=== PATIENT | female | born 1955 | race Caucasian/White ===

== ENCOUNTER 2025-02-05 01:09 | Emergency (ER) | payer MEDICAID, OTHER ==
[~2025-02-05] VITALS: Ht 157.5 cm; Wt 106.6 kg
[2025-02-05] MEDS ORDERED: METOPROLOL (01:34)
[2025-02-05] MEDS ORDERED: FURO20TA90 (01:34)
[2025-02-05] MEDS ORDERED: DILTIAZEM HCL 25 MG IV ONE (02:14)
[2025-02-05 02:23] LABS: BASOPHILS # (AUTO) 0.1 K/UL (0.0-0.2); BASOPHILS % (AUTO) 1.4 % (0.0-2.0); EOSINOPHILS % (AUTO) 0.3 % (0.0-7.0); HEMATOCRIT 30.6 % (31.2-41.9); HEMOGLOBIN 9.4 g/dL (10.9-14.3); LYMPHOCYTES # (AUTO) 0.9 K/uL (0.8-4.8); LYMPHOCYTES % (AUTO) 9.4 % (20.5-51.5); MEAN CORPUSCULAR HEMOGLOBIN 18.4 uug (24.7-32.8); MEAN CORPUSCULAR HGB CONC 31 g/dL (32.3-35.6); MEAN CORPUSCULAR VOLUME 60.1 fL (75.5-95.3); MONOCYTES # (AUTO) 0.9 K/uL (0.1-1.30); MONOCYTES % (AUTO) 9.9 % (0.0-11.0); NEUTROPHILS # (AUTO) 7.4 K/uL (1.8-8.9); PLATELET COUNT (AUTO) 239 K/uL (179-408); RED CELL DISTRIBUTION WIDTH 18.3 % (12.3-17.7); WHITE BLOOD COUNT (AUTO) 9.3 K/uL (3.8-11.8)
[2025-02-05 02:24] LABS: DIFFERENTIAL COMMENT 1
[2025-02-05 02:34] LABS: CALCIUM 9.2 mg/dL (8.5-10.1); CARBON DIOXIDE 31 mmol/L (21-32); CHLORIDE 102 mmol/L (98-107); CREATININE 0.8 mg/dL (0.6-1.3); GLUCOSE 122 mg/dL (74-106); POTASSIUM 3.9 mmol/L (3.5-5.1); SODIUM SERUM 138 mmol/L (136-145); UREA NITROGEN, BLOOD 12 mg/dL (7-18)
[2025-02-05 02:40] LABS: ALANINE AMINOTRANSFERASE 12 U/L (14-59); ALBUMIN 2.7 g/dL (3.4-5.0); ALKALINE PHOSPHATASE 87 U/L (50-136); ASPARTATE AMINOTRANSFERASE 20 U/L (15-37); BILIRUBIN,TOTAL 2.2 mg/dL (0.2-1.0); LIPASE 25 U/L (16-77); TOTAL PROTEIN, SERUM 7.1 g/dL (6.4-8.2)
[2025-02-05 02:45] LABS: MAGNESIUM 1.9 mg/dL (1.8-2.4)
[2025-02-05 02:47] LABS: THYROID STIMULATING HORMONE 2.095 mIU/mL (0.358-3.740)
[2025-02-05] MEDS: DILTIAZEM HCL 25 MG IV IV ONE ×2 (02:48→03:29)
[2025-02-05 03:23] VITALS: O2SAT 98
[2025-02-05 03:29] VITALS: BP 141/84
[2025-02-05] MEDS ORDERED: ACETAMINOPHEN 500 MG TABLET ONE (03:40)
[2025-02-05] MEDS: ACETAMINOPHEN 500 MG TABLET PO ONE (04:10)
== END 2025-02-05 04:39 | disposition home or self-care (01) ==
LOC: ER 01:13
DX: R10.9 Unspecified abdominal pain (principal); M54.9 Dorsalgia, unspecified; R60.0 Localized edema; D64.9 Anemia, unspecified; I10 Essential (primary) hypertension; I48.91 Unspecified atrial fibrillation; J18.9 Pneumonia, unspecified organism; J96.10 Chronic respiratory failure, unspecified whether with hypoxia or hypercapnia
CPT/HCPCS: 99285; 74176; 96374; 80076; 80048; 83880; 83690; 83735; 84443; 85025; 84484; 93005; 96376; J3490; A4606; A4663; A9150